=== PATIENT | female | born 1985 | race Caucasian/White ===

== ENCOUNTER 2017-10-02 19:33 | Emergency (ER) | payer OTHER ==
[~2017-10-02] VITALS: Ht 157.5 cm; Wt 61.2 kg
[2017-10-02] MEDS ORDERED: FLOVENT HFA 4444 MCG INH (19:49)
[2017-10-02] MEDS ORDERED: VENTOLIN HFA 1818 GM INH (19:49)
[2017-10-02] MEDS ORDERED: ZYRTEC10 M5 PO (19:50)
[2017-10-02] MEDS ORDERED: PREDNISONE 20 M20 MG PO (20:06)
[2017-10-02] MEDS ORDERED: TRAMADOL 50 MG50 MG PO (20:06)
== END 2017-10-02 20:32 | disposition home or self-care (01) ==
LOC: ER 19:33
DX: M54.31 Sciatica, right side (principal); F17.210 Nicotine dependence, cigarettes, uncomplicated

== ENCOUNTER 2017-11-20 09:31 | Emergency (ER) | payer OTHER ==
[~2017-11-20] VITALS: Ht 160 cm; Wt 61.2 kg
[~2017-11-20 09:31] MED LIST: FLOVENT HFA 4444 MCG INH; PREDNISONE 20 M20 MG PO; TRAMADOL 50 MG50 MG PO; VENTOLIN HFA 1818 GM INH; ZYRTEC10 M5 PO
[2017-11-20] MEDS ORDERED: NAPROSYN500 MG PO (10:50)
[2017-11-20] MEDS ORDERED: PREDNISONE 20 M20 MG PO (10:50)
[2017-11-20] MEDS ORDERED: TRAMADOL 50 MG50 MG PO (10:50)
== END 2017-11-20 11:09 | disposition home or self-care (01) ==
LOC: ER 09:31
DX: M54.42 Lumbago with sciatica, left side (principal); F17.210 Nicotine dependence, cigarettes, uncomplicated; F10.99 Alcohol use, unspecified with unspecified alcohol-induced disorder; Z88.6 Allergy status to analgesic agent; Z88.8 Allergy status to other drugs, medicaments and biological substances; Z98.890 Other specified postprocedural states